=== PATIENT | male | born 1955 | race Caucasian/White ===

== ENCOUNTER 2017-06-23 11:57 | Emergency (ER) | payer OTHER ==
[~2017-06-23] VITALS: Ht 195.6 cm; Wt 108.9 kg
[~2017-06-23 11:57] MED LIST: ATOR10; CEPH500 PO; CYCL10 PO; Effexor Xr150 MG PO; HYDACE5 PO; IBUP800 PO; LISHYD2025 PO; LORA1 PO; Naprosyn500 MG PO; Norco 10-325 T1 EACH PO; Norco 5-325 Ta1 EACH PO; OMEP20ER; RXCLIN PO; SIMV40 PO
[2017-06-23] MEDS ORDERED: Keflex500 MG PO (13:36)
[2017-06-23] MEDS ORDERED: Norco 10-325 T1 EACH PO (13:36)
[2017-06-23] MEDS ORDERED: CYCL10 PO (13:36)
[2017-06-23] MEDS ORDERED: ATOR80 (13:39)
[2017-06-23] MEDS ORDERED: LOSA50 PO (13:39)
== END 2017-06-23 13:50 | disposition home or self-care (01) ==
LOC: ER 11:57
DX: S12.300A Unspecified displaced fracture of fourth cervical vertebra, initial encounter for closed fracture (principal); S01.01XA Laceration without foreign body of scalp, initial encounter; W22.8XXA Striking against or struck by other objects, initial encounter; Z88.0 Allergy status to penicillin; Z79.899 Other long term (current) drug therapy
CPT/HCPCS: 70450; 72125

== ENCOUNTER 2018-06-18 01:47 | Emergency (ER) | payer OTHER ==
[~2018-06-18] VITALS: Ht 195.6 cm; Wt 122.5 kg
[~2018-06-18 01:47] MED LIST changes: +ATOR80; +Keflex500 MG PO; +LOSA50 PO
[2018-06-18] MEDS ORDERED: VENL25 PO (02:30)
[2018-06-18] MEDS ORDERED: Bactrim 400-801 EACH PO (05:14)
== END 2018-06-18 05:38 | disposition home or self-care (01) ==
LOC: ER 01:47
DX: H60.91 Unspecified otitis externa, right ear (principal); F17.200 Nicotine dependence, unspecified, uncomplicated; Z88.0 Allergy status to penicillin; Z79.899 Other long term (current) drug therapy
CPT/HCPCS: 99282; A9270-GY

== ENCOUNTER → 2018-11-08 | Outpatient (CLI) | payer OTHER ==
[~2018-11-08] MED LIST changes: +Bactrim 400-801 EACH PO; +VENL25 PO
[2018-11-13 11:38] LABS: Stool Occult Bld Immuno 1 Positive (NEGATIVE)
== END | disposition home or self-care (01) ==
LOC: LAB 12:00 → LAB SHORT 12:00 → EDSTATUS 10-31 14:50 → LAB FUT 10-31 14:50
PROVIDERS: Nurse Practitioner Family
DX: Z12.11 Encounter for screening for malignant neoplasm of colon (principal)
CPT/HCPCS: 82274

== ENCOUNTER → 2021-01-06 | Outpatient (CLI) | payer OTHER ==
[2021-01-10 13:51] LABS: Stool Occult Bld Immuno 1 Negative (NEGATIVE)
== END | disposition home or self-care (01) ==
LOC: LAB SHORT 14:40
PROVIDERS: Nurse Practitioner Family
DX: Z12.11 Encounter for screening for malignant neoplasm of colon (principal)
CPT/HCPCS: G0328

== ENCOUNTER → 2022-04-15 | Outpatient (CLI) | payer MEDICARE, OTHER | END | disposition home or self-care (01) | LOC: PLD 10:36 → LAB SHORT 10:36 | DX: D48.5 Neoplasm of uncertain behavior of skin (principal) | CPT/HCPCS: 88305 ==

== ENCOUNTER → 2022-11-02 | Outpatient (CLI) | payer OTHER | LOC: LAB 11:53 → PLD 11:53 → LAB SHORT 11:53 | DX: C44.311 Basal cell carcinoma of skin of nose (principal) | CPT/HCPCS: 88305 ==

== ENCOUNTER → 2022-11-08 | Outpatient (CLI) | payer OTHER | LOC: PLD 14:53 → LAB SHORT 14:53 | DX: C44.311 Basal cell carcinoma of skin of nose (principal) | CPT/HCPCS: 88305 ==

== ENCOUNTER → 2022-11-15 | Outpatient (CLI) | payer OTHER | LOC: LAB 14:28 → LAB SHORT 14:28 | DX: L08.89 Other specified local infections of the skin and subcutaneous tissue (principal) | CPT/HCPCS: 88305 ==